=== PATIENT | male | born 1970 | race Caucasian/White ===

== ENCOUNTER 2016-05-29 20:00 | Outpatient (CLI) | payer BC ==
--- OUTSIDE RECORDS SUMMARY | 2016-05-29 20:42 | XMS REPORT | Continuity of Care Document ---
Demographics Preferred Language Unknown Marital Status Unknown Shinto Affiliation Unknown Race Unknown Ethnic Group Unknown Author Author [facility] Address Unknown Phone Unavailable Allergies Medications Problems Date Dx Coded Attending Type Code Diagnosis Diagnosed By 04/30/2012 V04.81 FLU DX (3 YRS AND ABOVE, IM) 08/02/2015 ADELITA MIRANDA MD Ot R07.9 08/02/2015 ADELITA MIRANDA MD Ot R53.83 09/15/2015 ADELITA MIRANDA MD Ot R07.9 CHEST PAIN, UNSPECIFIED 09/15/2015 ADELITA MIRANDA MD Ot R53.83 OTHER FATIGUE 10/25/2015 ADELITA MIRANDA MD Ot R07.9 CHEST PAIN, UNSPECIFIED 10/25/2015 ADELITA MIRANDA MD Ot R53.83 OTHER FATIGUE 10/27/2015 ADELITA MIRANDA MD Ot R07.9 CHEST PAIN, UNSPECIFIED 10/27/2015 ADELITA MIRANDA MD Ot R53.83 OTHER FATIGUE 05/25/2016 ADELITA MIRANDA MD Ot R07.9 CHEST PAIN, UNSPECIFIED 05/25/2016 RUBEN DUMAS, ADELITA Watkins Ot R53.83 OTHER FATIGUE Procedures Results Encounters ACCT No. Visit Date/Time Discharge Status Pt. Type Provider Facility Loc./Unit Complaint [id number] 04/30/2012 13:10:00 04/30/2012 23: 59:59 CLS Outpatient
== END 2016-05-30 06:30 | disposition home or self-care (01) ==
LOC: SLEEP 20:00
PROVIDERS: ATTEND Nurse Practitioner Family
DX: G47.10 Hypersomnia, unspecified (principal); R06.83 Snoring
CPT/HCPCS: 95810

== ENCOUNTER → 2017-04-08 | Outpatient (CLI) | payer BC ==
--- NOTE | 2017-04-08 08:47 | Diagnostic Imaging Report ---
INDICATION: Left heel pain. AP and lateral views of left calcaneus are obtained. No fracture or acute bony abnormality is seen. IMPRESSION: Negative left calcaneus. Dictated by: Dictated on workstation # [id number]
== END ==
LOC: RAD 08:24
DX: M79.672 Pain in left foot (principal)
CPT/HCPCS: 73650

== ENCOUNTER → 2018-03-17 | Outpatient (CLI) | payer BC ==
--- NOTE | 2018-03-17 09:06 | Diagnostic Imaging Report ---
PROCEDURE: CT abdomen and pelvis without contrast. TECHNIQUE: Multiple contiguous axial images were obtained through the abdomen and pelvis without the use of intravenous contrast. INDICATION: Microhematuria COMPARISON: None available. FINDINGS: Evaluation of the abdominal viscera is mildly limited without contrast. Lower chest: The lung bases are clear. No pericardial or pleural effusion. Peritoneum: No free intraperitoneal air or fluid. Liver and biliary system: Unenhanced liver is normal. The gallbladder is normal. No biliary duct dilation. Spleen and Pancreas: Spleen is normal. Unenhanced pancreas is grossly normal. Adrenals: Normal. tract: In the lower pole of the right kidney there is a punctate 2 mm nonobstructing stone. A 4 mm stone is present in the proximal left ureter just below the UPJ. However, this does not result in hydronephrosis. No solid renal mass on either side by noncontrast imaging. Urinary bladder is normal. Prostate is not enlarged. GI tract: Stomach is partially distended with fluid and there is no wall thickening. No bowel obstruction. No pericolonic inflammatory changes. Normal appendix. Vasculature and Lymph nodes: Normal caliber aorta. No abdominal or pelvic lymphadenopathy. Musculoskeletal: No concerning osseous lesion. IMPRESSION: 1. Bilateral urinary tract calculi are present. This includes a 4 mm nonobstructing stone in the proximal left ureter and a 2 mm nonobstructing stone in the lower pole of the right kidney. Dictated by: Dictated on workstation # [id number]
== END ==
LOC: RAD 07:55
PROVIDERS: ATTEND Urology
DX: N20.2 Calculus of kidney with calculus of ureter (principal)
CPT/HCPCS: 74176

== ENCOUNTER → 2018-03-24 | Outpatient (CLI) | payer BC ==
[~2018-03-24] MED LIST: HYDR-3870 PO; NITR-65 PO; TAMS0.4C98 PO
--- NOTE | 2018-03-24 14:23 | Diagnostic Imaging Report ---
INDICATION: Left-sided calculus. COMPARISON: CT dated 03/17/2018. FINDINGS: Two supine radiographic views of the abdomen were obtained. There is faint punctate extraosseous calcification projecting lateral to the proximal psoas muscle at the L1-L2 intervertebral disc space level and measures approximately 3 mm. This may correspond to previously described ureteral calculus. Bilateral pelvic phleboliths are also noted. No unexpected radiopaque foreign bodies are seen. Small bowel loops are nondistended. There is no large collection of free intraperitoneal air. Bony structures show no acute abnormalities. IMPRESSION: 1. Probable proximal left ureteral calculus as described above. 2. Nonobstructive small bowel gas pattern. Dictated by: Dictated on workstation # [id number]
== END ==
LOC: RAD 13:58
PROVIDERS: ATTEND Urology
DX: N20.1 Calculus of ureter (principal)
CPT/HCPCS: 74018

== ENCOUNTER 2018-03-25 05:37 | Outpatient (CLI) | payer BC ==
[~2018-03-25] VITALS: Ht 180.3 cm; Wt 127.9 kg
[2018-03-26] MEDS ORDERED: NITR-65 PO (10:35)
[2018-03-26] MEDS ORDERED: HYDR-3870 PO (10:35)
[2018-03-26] MEDS ORDERED: TAMS0.4C98 PO (10:35)
== END 2018-03-25 15:15 | disposition home or self-care (01) ==
LOC: PREOP 05:37
PROVIDERS: ATTEND Urology
DX: Z01.818 Encounter for other preprocedural examination (principal)

== ENCOUNTER 2018-03-26 07:37 | Day surgery (SDC) | payer BC ==
[~2018-03-26] VITALS: Ht 180.3 cm; Wt 127.9 kg
[2018-03-26 07:40] VITALS: BP 123/84
[2018-03-26] MEDS ORDERED: cefTRIAXone FOR IV USE 1,000 MG in NS (IVPB) 50 ML IV ONE (08:15)
[2018-03-26] MEDS ORDERED: SEVOFLURANE (ULTANE) 15 ML INHAL SOLN ONE (08:16)
[2018-03-26] MEDS ORDERED: KETOROLAC 30 MG/ML VIAL ONE (08:16)
[2018-03-26] MEDS ORDERED: LIDOCAINE PF 2% 5 ML (XYLOCAINE) VIAL ONE (08:16)
[2018-03-26] MEDS ORDERED: proPOfol 200 MG/20 ML (DIPRIVAN) VIAL IV ONE (08:16)
[2018-03-26] MEDS ORDERED: FUROSEMIDE 40 MG/4 ML INJ (LASIX) ONE (08:16)
[2018-03-26] MEDS ORDERED: fentaNYL INJECTION 100 MCG/2 ML AMP ONE (08:16)
[2018-03-26] MEDS ORDERED: ONDANSETRON 4 MG/2 ML (SDV) Z0FRAN ONE (08:16)
[2018-03-26] MEDS ORDERED: DEXAMETHASONE 10 MG/ML (DECADRON) 1 ML VIAL ONE (08:16)
[2018-03-26] MEDS ORDERED: MIDAZOLAM 2 MG/2 ML (VERSED) VIAL ONE (08:17)
[2018-03-26] MEDS: LACTATED RINGERS 1,000 ML IV PRN ×2 (08:20→09:45)
[2018-03-26] MEDS ORDERED: CATHETER FLUSH 10 ML SYR IV PRN (08:30)
--- NOTE | 2018-03-26 08:32 | Progress Note-Pre Operative ---
Pre-Operative Progress Note H&P Reviewed The H&P was reviewed, patient examined and no changes noted. Date Seen by Provider: Mar 26, 2018 Time Seen by Provider: 08:32 Date H&P Reviewed: Mar 26, 2018 Time H&P Reviewed: 08:32 Pre-Operative Diagnosis: LT PROXIMAL URETERAL STONE RENETTA MIRANDA MD Mar 26, 2018 08:32
--- NOTE | 2018-03-26 08:40 | Diagnostic Imaging Report ---
INDICATION: Left ureteral stone Similar to exam dated 03/24/2018, there are faint calcifications in left upper quadrant. The kidney is somewhat obscured by overlying bowel, however, the 0.3 cm calcification just lateral to L2 has a similar appearance. Again, this may be related to proximal ureteric stone. Rounded calcifications are seen bilaterally in the pelvis which likely represent phleboliths. IMPRESSION: Persistent 0.3 cm calculus in the left upper quadrant. Again, this may be related to proximal ureteric stone, however, overall appearance has not changed. Dictated by: Dictated on workstation # [id number]
--- OUTSIDE RECORDS SUMMARY | 2018-03-26 08:58 | XMS REPORT | Continuity of Care Document ---
Demographics Preferred Language Unknown Marital Status Unknown Yarsanism Affiliation Unknown Race Unknown Ethnic Group Unknown Author Author [facility] Address Unknown Phone Unavailable Allergies There is no data. Medications There is no data. Problems Date Dx Coded Attending Type Code [...] MD Ot R07.9 CHEST PAIN, UNSPECIFIED 05/25/2016 ADELITA MIRANDA MD Ot R53.83 OTHER FATIGUE 05/30/2016 OSMAN SCOTT REGULATORY ADMINISTRATOR Ot G47.10 HYPERSOMNIA, UNSPECIFIED 05/30/2016 OSMAN SCOTT REGULATORY ADMINISTRATOR Ot R06.83 SNORING 05/30/2016 OSMAN SCOTT REGULATORY ADMINISTRATOR Ot G47.10 HYPERSOMNIA, UNSPECIFIED 05/30/2016 OSMAN SCOTT REGULATORY ADMINISTRATOR Ot R06.83 SNORING 02/13/2017 ADELITA MIRANDA MD Ot R07.9 CHEST PAIN, UNSPECIFIED 02/13/2017 ADELITA MIRANDA MD Ot R53.83 OTHER FATIGUE 04/14/2017 CECILIO DUMAS, KYLE Dinero Ot M79.672 PAIN IN LEFT FOOT 04/26/2017 KYLE HERNANDES MD Ot M79.672 PAIN IN LEFT FOOT 06/14/2017 ADELITA MRIANDA MD Ot R07.9 CHEST PAIN, UNSPECIFIED 06/14/2017 ADELITA MIRANDA MD Ot R53.83 OTHER FATIGUE 06/14/2017 KYLE HERNANDES MD Ot M79.672 PAIN IN LEFT FOOT 07/19/2017 RUBEN DUMAS, ADELITA Watkins Ot R07.9 CHEST PAIN, UNSPECIFIED 07/19/2017 RUBEN DUMAS, ADELITA Watkins Ot R53.83 OTHER FATIGUE 07/19/2017 KYLE HERNANDES MD Ot M79.672 PAIN IN LEFT FOOT 07/19/2017 RUBEN DUMAS, ADELITA Watkins Ot R07.9 CHEST PAIN, UNSPECIFIED 07/19/2017 ADELITA MIRANDA MD Ot R53.83 OTHER FATIGUE 07/19/2017 KYLE HERNANDES MD Ot M79.672 PAIN IN LEFT FOOT 08/01/2017 RUBEN DUMAS, ADELITA Watkins Ot R07.9 CHEST PAIN, UNSPECIFIED 08/01/2017 ADELITA MIRANDA MD Ot R53.83 OTHER FATIGUE 08/01/2017 KYLE HERNANDES MD Ot M79.672 PAIN IN LEFT FOOT 03/17/2018 RUTH DUMAS, RENETTA Corral Ot N20.2 CALCULUS OF KIDNEY WITH CALCULUS OF URET Procedures There is no data. Results There is no data. Encounters ACCT No. Visit Date/Time Discharge Status Pt. Type Provider Facility Loc./Unit Complaint [id number] 04/30/2012 13:10:00 04/30/2012 23:59:59 CLS Outpatient [id number] 03/17/2018 07:55:00 03/17/2018 23:59:59 CLS Outpatient RENETTA MIRANDA MD [facility] RAD MICROHEMATURIA [id number] 04/08/2017 08:24:00 04/08/2017 23:59:59 CLS Outpatient KYLE HERNANDES MD [facility] RAD M79.672 [id number] 05/29/2016 20:00:00 05/30/2016 06:30:00 DIS Outpatient OSMAN SCOTT APRN [facility] SLEEP OBSERVED APNEAS, SNORING [id number] 10/26/2015 00:08:00 10/26/2015 23:59:59 CLS Preadmit ADELITA MIRANDA MD [facility] CARD CHEST PAIN [id number] 07/27/2015 11:48:00 10/25/2015 00:01:00 DIS Outpatient ADELITA MIRANDA MD [facility] CARD CHEST PAIN
[2018-03-26] MEDS ORDERED: PHENYLEPHRINE 100 MCG/ML 10 ML (ANESTHESIA) SYR ONE (09:09)
--- NOTE | 2018-03-26 09:14 | Progress Note-Post Operative ---
Post-Operative Progess Note Surgeon (s)/Exchange Specialist (s) Surgeon RENETTA MIRANDA MD Exchange Specialist: NONE Pre-Operative Diagnosis LT PROXIMAL URETERAL STONE Post-Operative Diagnosis SAME Procedure & Operative Findings Date of Procedure 03/26/18 Procedure Performed/Findings LT ESWL Anesthesia Type GENERAL Estimated Blood Loss Estimated blood loss (mL): NONE Specimens/Packing Specimens Removed NONE Packing: NONE RENETTA MIRANDA MD Mar 26, 2018 09:14
--- NOTE | 2018-03-26 09:15 | Discharge Inst-Urology ---
Discharge Inst-Urology Discharge Medications New, Converted, or Re-newed RX: RX on Chart Patient Instructions/Follow Up Plan Please make appointment to been seen in office in 2 weeks. KUB prior to it Post ESWL instructions to patient KUB on way home Increase oral fluids for 48 hours and then as needed. Diet and Activity as tolerated. If questions or concerns contact your physician Or seek help at emergency department. RENETTA MIRANDA MD Mar 26, 2018 09:15
[2018-03-26] MEDS ORDERED: morphine INJ 10 MG/ML 1ML (SYR OR VIAL) ONE (09:38)
--- NOTE | 2018-03-26 09:42 | OPERATIVE REPORT ---
DATE OF SERVICE: 03/26/2018 PREOPERATIVE DIAGNOSIS: Left proximal ureteral stone. POSTOPERATIVE DIAGNOSIS: Left proximal ureteral stone. OPERATION PERFORMED: Left ESWL. SURGEON: Stephen Miranda MD. ANESTHESIA: General. COMPLICATIONS: None. DESCRIPTION OF PROCEDURE: Under satisfactory general anesthesia, the patient in supine position on the ESWL table, the left proximal ureteral stone was localized. Shocks were delivered at a kV of 4. A total of 1500 shocks completely fragmented the stone and it was not visible any more. The patient received 30 mg of Toradol and 40 mg of Lasix at the end of the procedure. He tolerated the procedure and anesthesia well and was sent to recovery room in stable condition. Job ID: [id number] DocumentID: [id number] Dictated Date: 03/26/2018 09:32:35 Windows Application Packager Date: 03/26/2018 09:42:26 Dictated By: STEPHEN MIRANDA MD
[2018-03-26] MEDS ORDERED: ONDANSETRON 4 MG/2 ML (SDV) Z0FRAN IVP PRN (09:45)
[2018-03-26] MEDS ORDERED: morphine INJ 10 MG/ML 1ML (SYR OR VIAL) IVP ONE (09:45)
[2018-03-26 10:15] VITALS: BP 123/84
[2018-03-26] MEDS ORDERED: TAMS0.4C98 PO (10:35)
[2018-03-26] MEDS ORDERED: NITR-65 PO (10:35)
[2018-03-26] MEDS ORDERED: HYDR-3870 PO (10:35)
[2018-03-26 10:45] VITALS: BP 112/72
[2018-03-26 11:15] VITALS: BP 118/78
[2018-03-26 11:22] VITALS: BP 118/78
--- NOTE | 2018-03-26 12:48 | Diagnostic Imaging Report ---
EXAMINATION: Supine abdomen at 11:02 a.m. INDICATION: Post ESWL. FINDINGS: The exam performed earlier today noted a 3 mm calculus overlying the left upper quadrant. That calcification is not well visualized on this study as left upper quadrant is now partially obscured by bowel gas and fecal material. The suspected phleboliths low in the pelvis seen previously are again noted and no different. No other abnormality is identified. IMPRESSION: The calcification overlying the proximal left ureter seen on the prior exam is not well visualized on this study. If further evaluation is desired, then CT should be considered. Dictated by: Dictated on workstation # [id number]
--- NOTE | 2018-03-26 13:44 | Anesthesia-General Post-Op ---
General Patient Condition Mental Status/LOC: Same as Preop Cardiovascular: Satisfactory Nausea/Vomiting: Absent Respiratory: Satisfactory Pain: Controlled Complications: Absent Post Op Complications Complications None Follow Up Care/Instructions Patient Instructions None needed. Anesthesia/Patient Condition Patient Condition Patient is doing well, no complaints, stable vital signs, no apparent adverse anesthesia problems. WENDY FIGUEROA DO Mar 26, 2018 13:44
== END 2018-03-26 11:22 | disposition home or self-care (01) ==
LOC: SDC 07:37
PROVIDERS: ATTEND Urology
DX: N20.1 Calculus of ureter (principal); G47.33 Obstructive sleep apnea (adult) (pediatric); J45.909 Unspecified asthma, uncomplicated; E66.01 Morbid (severe) obesity due to excess calories; Z68.39 Body mass index [BMI] 39.0-39.9, adult; Z91.14 Patient's other noncompliance with medication regimen
CPT/HCPCS: 74018; 87081

== ENCOUNTER 2018-04-08 15:40 | Outpatient (RCR) | payer BC | END 2018-07-07 | disposition home or self-care (01) | LOC: LAB 15:40 | PROVIDERS: ATTEND Urology | DX: N20.0 Calculus of kidney (principal) | CPT/HCPCS: 36415; 82140; 82340; 82507; 82570; 83735; 83945; 83986; 84105; 84133; 84300; 84392; 84560 ==

== ENCOUNTER → 2018-04-08 | Outpatient (CLI) | payer BC ==
--- NOTE | 2018-04-08 15:27 | Diagnostic Imaging Report ---
INDICATION: Follow up calculus. Previous ESWL. COMPARISON: 03/26/2018. FINDINGS: Two supine radiographic views of the abdomen were obtained. Small bowel loops are nondistended. There is no large collection of free intraperitoneal air. No unexpected extraosseous calcifications or radiopaque foreign bodies are seen. Bony structures show no gross acute abnormalities. IMPRESSION: 1. No unexpected extraosseous calcifications. 2. Nonobstructed small bowel gas pattern. Dictated by: Dictated on workstation # [id number]
== END ==
LOC: RAD 14:17
PROVIDERS: ATTEND Urology
DX: N20.1 Calculus of ureter (principal)
CPT/HCPCS: 74018

== ENCOUNTER → 2019-02-18 | Outpatient (CLI) | payer BC ==
--- NOTE | 2019-02-18 17:12 | Diagnostic Imaging Report ---
INDICATION: Urinary tract calculi. Supine images of the abdomen are obtained. Comparison is made to study of 03/29/2018. Several rounded calcifications are again seen bilaterally in the pelvis. These have not significantly changed in position and likely represent phleboliths. There is no evidence of renal or ureteric stone. No free gas is seen within the abdomen. There is no evidence of bowel obstruction. IMPRESSION: No acute abnormality. Dictated by: Dictated on workstation # [id number]
== END ==
LOC: LAB 16:53
PROVIDERS: ATTEND Urology
DX: Z87.442 Personal history of urinary calculi (principal)
CPT/HCPCS: 74018

== ENCOUNTER 2021-02-19 15:34 | Outpatient (RCR) | payer BC ==
[2021-02-16 17:53] LABS: POTASSIUM 3.8 MMOL/L (3.6-5.0)
[2021-02-16 17:54] LABS: CALCIUM 10.3 MG/DL (8.5-10.1)
[2021-02-16 17:58] LABS: CREATININE SERUM 0.83 MG/DL (0.60-1.30); PHOSPHORUS 3.4 MG/DL (2.3-4.7)
[2021-02-16 18:01] LABS: URIC ACID 7.7 MG/DL (2.6-7.2)
[~2021-02-19 15:34] MED LIST changes: -TAMS0.4C98 PO; +TMSL.4C PO
== END 2021-04-21 | disposition home or self-care (01) ==
LOC: LAB 15:34
PROVIDERS: ATTEND Urology
DX: N40.0 Benign prostatic hyperplasia without lower urinary tract symptoms (principal); E29.1 Testicular hypofunction; Z87.442 Personal history of urinary calculi
CPT/HCPCS: 36415; 80048; 82140; 82340; 82507; 82570; 83735; 83945; 83986; 84100; 84105; 84133; 84153; 84300; 84392; 84403; 84550; 84560